=== PATIENT | male | born 1950 | race Caucasian/White ===

== ENCOUNTER → 2024-12-21 | Outpatient (CLI) | payer MEDICARE, BC, SELFPAY ==
--- NOTE | 2024-12-21 16:31 | XR_ITS ---
Examination: PA lateral chest 2 views TECHNIQUE: Upright PA lateral chest 2 views Exam date and time: December 21, 2024 1637 hours Comparison December 16, 2016 INDICATIONS: Bronchitis coughing beginning 2 weeks ago. FINDINGS: Mild accentuation basilar bronchovascular markings Normal heart size No lobar pneumonia Partial visualization cervical orthopedic hardware Left shoulder arthroplasty with satisfactory alignment IMPRESSION: Basilar bronchitis pattern
== END | disposition home or self-care (01) ==
PROVIDERS: PCP Family Medicine; Referring Provider Family Medicine; Visit Provider Family Medicine
DX: R05.9 Cough, unspecified (principal)
CPT/HCPCS: 71046

== ENCOUNTER → 2024-12-30 | Outpatient (CLI) | payer MEDICARE, BC, SELFPAY ==
[2024-12-30 10:40] LABS: Basophils % (Auto) 0 % (0-2.5); Eosinophils # (Auto) 0.2 Thou/mm3 (0.0-0.5); Eosinophils % (Auto) 3 % (0-10); Hematocrit 47.6 % (41.0-53.0); Hemoglobin 16.4 g/dL (13.5-16.0); Immature Granulocytes % (Auto) 1 % (0-0); Immature Granulocytes Auto 0.05 Thou/mm3 (0.00-0.00); Lymphocytes # (Auto) 2.1 Thou/mm3 (1.0-4.8); Lymphocytes % (Auto) 29 % (10-50); Mean Corpuscular HGB Conc 34.5 g/dl (31.0-37.0); Mean Corpuscular Hemoglobin 29.8 pg (25.0-35.0); Mean Corpuscular Volume 87 fL (80-100); Monocytes # (Auto) 0.7 Thou/mm3 (0.0-0.8); Monocytes % (Auto) 9 % (0-12); Neutrophils # (Auto) 4.3 Thou/mm3 (1.8-7.7); Neutrophils % (Auto) 59 % (37-80); Nucleated Red Blood Cell % 0 /100 WBC (0); Platelet Count 294 Thou/mm3 (140-440); RDW Standard Deviation 41.1 fL (35.1-43.9); White Blood Count 7.3 Thou/mm3 (3.8-10.6)
[2024-12-30 10:49] LABS: Glucose Estimated Average 134 mg/dL (80-131); Hemoglobin A1C 6.3 % Hgb (4.8-6.0)
[2024-12-30 10:56] LABS: Alanine Aminotransferase 35 U/L (10-49); Albumin, Serum 4.1 gm/dL (3.4-4.8); Albumin/Globulin Ratio 1.4 (1.2-2.2); Alkaline Phosphatase 60 U/L (46-116); Anion Gap 9 (7-16); Aspartate Amino Transferase 21 U/L (0-34); BUN/Creatinine Ratio 15 Ratio (12-20); Blood Urea Nitrogen 15 mg/dL (9-23); Calcium 9.3 mg/dL (8.3-10.6); Calcium (Corrected) 9.3 mg/dL (8.5-10.1); Carbon Dioxide 28.1 mMol/L (20.0-31.0); Cardiac Risk Estimate 3.6 RATIO (4.0-6.7); Chloride 96 mMol/L (98-107); Cholesterol 118 mg/dL (132-200); Free T4 (Free Thyroxine) 1.69 ng/dL (0.89-1.76); Glucose 124 mg/dL (74-106); HDL Cholesterol 33 mg/dL (40-60); LDL Cholesterol,Calculated 55 mg/dL (0-130); Osmolality,Calculated 268 (275-295); Potassium 4.3 mMol/L (3.4-5.1); Sodium 133 mMol/L (136-145); Thyroid Stimulating Hormone 5.54 uIU/mL (0.55-4.78); Total Protein 7.1 gm/dL (5.7-8.2); Triglycerides 148 mg/dL (30-150); eGFR > 60 See Note
[2024-12-30 10:57] LABS: Sed Rate (ESR) 12 mm/hr (0-20)
[2024-12-30 13:51] LABS: Cocci Serology, IgM Negative (Negative)
[2025-01-01 14:51] LABS: Cocci Serology, IgG Negative (Negative)
== END | disposition home or self-care (01) ==
LOC: COPL 09:54
PROVIDERS: PCP Family Medicine; Referring Provider Family Medicine; Visit Provider Family Medicine
DX: E11.65 Type 2 diabetes mellitus with hyperglycemia (principal); E78.1 Pure hyperglyceridemia; E03.2 Hypothyroidism due to medicaments and other exogenous substances; D50.0 Iron deficiency anemia secondary to blood loss (chronic)
CPT/HCPCS: 36415; 80053; 80061; 83036; 84439; 84443; 85025; 85652; 86331; 86635

== ENCOUNTER → 2025-01-05 | Outpatient (CLI) | payer MEDICARE, BC, SELFPAY ==
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
== END | disposition home or self-care (01) ==
PROVIDERS: PCP Family Medicine; Referring Provider Family Medicine; Visit Provider Family Medicine
DX: S09.90XA Unspecified injury of head, initial encounter (principal); X58.XXXA Exposure to other specified factors, initial encounter
CPT/HCPCS: 70260

== ENCOUNTER → 2025-01-25 | Outpatient (CLI) | payer MEDICARE, BC, SELFPAY ==
[2025-01-25 13:47] LABS: Free T4 (Free Thyroxine) 1.58 ng/dL (0.89-1.76)
[2025-01-25 13:56] LABS: Thyroid Stimulating Hormone 2.83 uIU/mL (0.55-4.78)
== END | disposition home or self-care (01) ==
LOC: COPL 10:48
PROVIDERS: PCP Family Medicine; Referring Provider Internal Medicine Cardiovascular Disease; Visit Provider Family Medicine
DX: E03.2 Hypothyroidism due to medicaments and other exogenous substances (principal)
CPT/HCPCS: 36415; 84439; 84443

== ENCOUNTER → 2025-03-07 | Outpatient (CLI) | payer MEDICARE, BC, SELFPAY ==
--- NOTE | 2025-03-07 09:41 | XR_ITS ---
Examination:Left hip AP, lateral, AP pelvis 3 views Technique: Hip AP lateral, AP pelvis, 3 views Exam date and time:March 07, 2025 0942 hours Comparison 08/11/2024 INDICATIONS: Hip pain 8 months FINDINGS: Advanced left hip osteoarthritis Moderate narrowing right hip joint Bones of the pelvis is intact IMPRESSION: Advanced left hip osteoarthritis
== END | disposition home or self-care (01) ==
PROVIDERS: PCP Family Medicine; Referring Provider Orthopaedic Surgery Adult Reconstructive Orthopaedic Surgery; Visit Provider Orthopaedic Surgery Adult Reconstructive Orthopaedic Surgery
DX: M16.12 Unilateral primary osteoarthritis, left hip (principal)
CPT/HCPCS: 73502

== ENCOUNTER 2025-03-10 13:24 | Outpatient (AMB) | payer MEDICARE, BC, SELFPAY ==
[2025-03-10 13:41] VITALS: BP 105/70; PULSE 80; RESP 19; TEMP 36; O2SAT 93; BMI 26.0
--- NOTE | 2025-03-10 13:41 | ORTHONT_ITS ---
Vital signs 03/10/25 13:41 Height 1.68 m Height Method Stated Weight 73.17 kg Weight Measurement Method Standing Scale BMI 26.0 BP 105/70 Blood Pressure Source Automatic Cuff Blood Pressure Location Left Upper Arm Position Sitting Respiration 19 Pulse 80 Pulse Source Monitor Temp 96.8 F Temp Source Temporal Artery Scan Pulse Oximetry (%) 93 L Oxygen Delivery Method Room Air Med/Allergies Allergies & Medications Allergies Penicillins Allergy (Unknown, Verified 03/10/25 13:42) Rash Medication Reconciliation amiodarone 200 mg tablet 200 mg PO QDAY 04/02/19 [History Confirmed 03/10/25] finasteride 5 mg tablet 5 mg PO QDAY 04/02/19 [History Confirmed 03/10/25] losartan 50 mg tablet 50 mg PO QDAY 04/02/19 [History Confirmed 03/10/25] mupirocin 2 % topical ointment 1 applic topical TID 04/02/19 [History Confirmed 03/10/25] omeprazole 20 mg capsule,delayed release 20 mg PO QDAY 04/02/19 [History Confirmed 03/10/25] tamsulosin 0.4 mg capsule 0.4 mg PO QDAY 04/02/19 [History Confirmed 03/10/25] apixaban 5 mg tablet (Eliquis) 5 mg PO QDAY 06/05/23 [History Confirmed 03/10/25] diclofenac sodium 1 % topical gel 1 g topical TID PRN Itching 06/05/23 [History Confirmed 03/10/25] fluticasone propionate 50 mcg/actuation nasal spray,suspension 1 spray intranasal QDAY 06/05/23 [History Confirmed 03/10/25] loratadine 10 mg tablet 10 mg PO QDAY 06/05/23 [History Confirmed 03/10/25] alendronate 35 mg tablet 35 mg PO QWEEK 06/06/23 [History Confirmed 03/10/25] Exam Exam Patient is in no acute distress and is cooperative with the examination today. Breathing is nonlabored. In no respiratory distress. Patient has no paraspinal tenderness. Spinal deformity cannot be appreciated. The gait of the patient is nonantalgic Bilateral extremities were evaluated and demonstrates sensation intact to light touch. Palpable pedal pulses are present. No significant edema is present. Bilateral knees were examined and the patient has full strength and range of motion.. The right hip was examined. Patient was able to flex to 90 degrees, adduct to 30 degrees, abduct to 40 degrees, internally rotate to 20 degrees, and externally r otate to 20 degrees. Patient has a negative logroll. Stinchfield is negative. The patient is nontender diffusely to touch. The left hip was examined. Patient was able to flex to 90 degrees, adduct to 30 degrees, abduct to 40 degrees, internally rotate to 10 degrees, and externally rotate to 20 degrees. Patient has a Positive logroll. The stinchfield is negative. Assessment and Plan Problem List (1) Arthritis of left hip: Status: Acute Plan: Patient is a pleasant 74-year-old male with a left hip pain and left hip arthritis. We discussed different treatment options including injections, anti- inflammatories, and physical therapy. The pain is affecting his quality life he has severe arthritis of his left hip. We discussed total hip replacement in great detail. He cannot take anti-inflammatories due to his Eliquis. We discussed that he is at high risk for complications mainly because of the blood thinner. This would have to be stopped before surgery. He is also at high risk of DVT given that he had a provoked DVT in the past. He reports that the pain is affecting his quality life and He would like to proceed with a total hip replacement The nature and purpose of the total hip replacement, alternative method(s) of treatment, the material risks involved, and the possibility of complications were fully explained to the patient. The patient does NOT have any of the following contraindications to DUSTIN: - Active infection of the hip joint, OR - Active systemic bacteremia, OR - Active skin infection or open wound at surgical site, OR - Neuropathic arthritis, OR - Severe, rapidly progressive neurological disease, OR - Severe medical condition that makes risks of the surgery outweigh the potential benefit The patient was told the most common risks and complications associated with a total hip replacement include, but are not limited to: blood clots in the leg, fatal pulmonary embolism, dislocation of the prosthesis, intraoperative and postoperative fractures of the femur or acetabulum, infection, failure of the prosthesis or grafting materials, complications from anesthesia, reactions to blood transfusions, postoperative leg length inequality, instability of the hip replacement, nerve damage or injury, vascular injury, delayed wound healing, infection, other injury or even . In addition, there are risks associated with anesthesia given during this operation. Also, the patient was told that after undergoing a total hip replacement there may still be persistent pain or disability. The patient was informed that the success of this operation in part depends upon the mechanical devices which are going to be implanted and that these devices can fail or malfunction, and may need to be repaired or replaced and there are no guarantees as to the longevity of this device or its parts and that it or its parts could fail prematurely. The patient was also notified that during the course of surgery, there may be a need to use bone graft from donors, and that any bone graft used will be carefully screened for communicable diseases, including AIDS, hepatitis, Deandre-Creutzfeldt, or other diseases, but despite the screening procedures, there is a small chance that they could contract one of these diseases. Finally, the patient was asked to follow completely and fully with all advice and recommended treatments, and that recovery and ultimate outcome are affected by their compliance with recommended treatment. We discussed the risks, benefits and treatment alternatives, and the patient is interested in proceeding with surgery. We will try to set this up as expeditiously as possible. Advanced Care Planning Discussion Advance care planning discussed with:: patient Office Procedures GNS Level of Care Nursing/Assessment Patient Status: Initial/New Patient Nursing Assessment/Reassesment: Medication Reconciliation, Update PMH in EMR and Vital Signs Coordination of Care: Complex Care and Chronic Disease 1-5, Education Complex Pt/Fam, Consent,records obtained, informed consent, 1 Ins Authorization, Lab and Imaging orders, Results/Orders obtained and Staff clarify orders New Patient Charge New Patient Point Assignment: 1124 New Patient Point Charge: BINDING STITCHER Level 4 ([id number]) MA Intake Visit Data Collection New Patient or Established: New Patient (never been to [facility]) Reason for Visit:: LEFT HIP OA Seen by Clinical Staff ONLY (RN/MA): No Soap Inspector Required: No PCP or OBGYN visit in last 3 months: Yes Hx Now: No Do You Feel Safe at Home: Yes Authorities Contacted: N/A Questionairres Past Medical History Past Medical History Have you ever been diagnosed with any of the following: Neurological Problems Seizures: No Cardiology Problems Cardiac Arrhythmia: Yes Atrial Fibrillation: Yes Angina: No Congestive Heart Failure: No Hypertension: Yes Respiratory Problems Chronic Obstructive Pulmonary Disease (COPD): No Smoking: No Smoking Exposure: No Stomache/Intestinal Problems Gastroesophageal Reflux Disease: Yes Genital/Urinary Problems Renal Disease: No Benign Prostatic Hyperplasia: Yes Musculoskeletal Problems Arthritis: Yes Carpal Tunnel Syndrome: Yes (left) Endocrine Problems Diabetes Mellitus Type 1: No Diabetes Mellitus Type 2: No Other Problems Falls: No Blood Transfusions: No Anesthesia Reactions: No Chicken Pox: Yes Measles: Yes Mumps: Yes Cancer: Yes Subjective Visit Visit for: new patient and hip (LEFT) Immunization / Flu Flu Vaccine in the Last 12 Months: No Flu Vaccine Exclusion Criteria: No Exclusion Criteria History of Present Illness Chief complaint: Left hip Date of injury / onset of symptoms: 03/2024 Severo is a pleasant 74-year-old male with severe left hip pain. This been ongoing for 1 to 2 years. He is on Eliquis for a prior DVT that occurred quite a while ago when he had shoulder surgery. He also has some heart issues. 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 We would need to get both medical and cardiac clearance prior to surgery. The left hip pain has been bothering him for quite a while. He takes Tylenol. He cannot take anti-inflammatories due to his Eliquis. He reports that the pain is primarily in the groin Personal History Occupation: RETIRED Pain Pain level (0-10): 3 Pain duration: ON AND OFF Pain location: outside (lateral) Pain quality: dull and other (specify) Pain timing: night, increases with activity and stairs Associated signs & symptoms: stiffness Ambulatory data Ambulatory device: none Treatments Improvement with previous injections: No Improvement with PT: No Improvement with NSAIDS: no Review of Systems Review of Systems: All systems negative unless otherwise noted in HPI.
== END 2025-03-10 14:07 | disposition home or self-care (01) ==
PROVIDERS: PCP Family Medicine; Referring Provider Family Medicine; Supervising Provider Orthopaedic Surgery Adult Reconstructive Orthopaedic Surgery; Visit Provider Orthopaedic Surgery Adult Reconstructive Orthopaedic Surgery
DX: M16.12 Unilateral primary osteoarthritis, left hip (principal); M25.552 Pain in left hip; I10 Essential (primary) hypertension; I48.91 Unspecified atrial fibrillation
CPT/HCPCS: 99204; G0463

== ENCOUNTER → 2025-03-18 | Outpatient (CLI) | payer MEDICARE, BC, SELFPAY | END | disposition home or self-care (01) | PROVIDERS: PCP Family Medicine; Referring Provider Internal Medicine Cardiovascular Disease; Visit Provider Orthopaedic Surgery Adult Reconstructive Orthopaedic Surgery | DX: Z01.810 Encounter for preprocedural cardiovascular examination (principal) | CPT/HCPCS: 80053; 85025; 85610; 85730 ==

== ENCOUNTER → 2025-03-21 | Outpatient (CLI) | payer MEDICARE, BC, SELFPAY ==
[2025-03-21 18:01] LABS: Basophils % (Auto) 1 % (0-2.5); Eosinophils # (Auto) 0.3 Thou/mm3 (0.0-0.5); Eosinophils % (Auto) 4 % (0-10); Hematocrit 44.9 % (41.0-53.0); Hemoglobin 15.6 g/dL (13.5-16.0); Immature Granulocytes % (Auto) 0 % (0-0); Immature Granulocytes Auto 0.03 Thou/mm3 (0.00-0.00); Lymphocytes # (Auto) 2.6 Thou/mm3 (1.0-4.8); Lymphocytes % (Auto) 31 % (10-50); Mean Corpuscular HGB Conc 34.7 g/dl (31.0-37.0); Mean Corpuscular Hemoglobin 30.3 pg (25.0-35.0); Mean Corpuscular Volume 87 fL (80-100); Monocytes # (Auto) 0.8 Thou/mm3 (0.0-0.8); Monocytes % (Auto) 10 % (0-12); Neutrophils # (Auto) 4.6 Thou/mm3 (1.8-7.7); Neutrophils % (Auto) 55 % (37-80); Nucleated Red Blood Cell % 0 /100 WBC (0); Platelet Count 272 Thou/mm3 (140-440); RDW Standard Deviation 43.9 fL (35.1-43.9); Red Blood Count 5.15 Miln/mm3 (4.50-5.90); White Blood Count 8.4 Thou/mm3 (3.8-10.6)
[2025-03-21 18:07] LABS: Partial Thromboplastin Time 29.4 Seconds (22.0-36.0); Prothrombin Time 11.1 Seconds (9.0-12.2)
[2025-03-21 18:13] LABS: Alanine Aminotransferase 32 U/L (10-49); Albumin, Serum 3.9 gm/dL (3.4-4.8); Albumin/Globulin Ratio 1.4 (1.2-2.2); Alkaline Phosphatase 63 U/L (46-116); Anion Gap 6 (7-16); Aspartate Amino Transferase 25 U/L (0-34); BUN/Creatinine Ratio 14 Ratio (12-20); Bilirubin,Total 0.4 mg/dL (0.3-1.2); Blood Urea Nitrogen 14 mg/dL (9-23); Calcium 9.1 mg/dL (8.3-10.6); Calcium (Corrected) 9.2 mg/dL (8.5-10.1); Carbon Dioxide 28.4 mMol/L (20.0-31.0); Chloride 104 mMol/L (98-107); Globulin 2.7 gm/dL (2.3-3.5); Glucose 107 mg/dL (74-106); Osmolality,Calculated 276 (275-295); Potassium 4.1 mMol/L (3.4-5.1); Sodium 138 mMol/L (136-145); Total Protein 6.6 gm/dL (5.7-8.2); eGFR > 60 See Note
== END | disposition home or self-care (01) ==
LOC: COPL 16:07
PROVIDERS: PCP Family Medicine; Referring Provider Orthopaedic Surgery Adult Reconstructive Orthopaedic Surgery; Visit Provider Internal Medicine Cardiovascular Disease
DX: Z01.810 Encounter for preprocedural cardiovascular examination (principal); I82.622 Acute embolism and thrombosis of deep veins of left upper extremity; M16.12 Unilateral primary osteoarthritis, left hip
CPT/HCPCS: 36415; 80053; 85025; 85610; 85730

== ENCOUNTER 2025-03-31 13:47 | Outpatient (AMB) | payer MEDICARE, BC, SELFPAY ==
[2025-03-31 14:56] VITALS: BP 105/68; PULSE 78; RESP 18; TEMP 36.6; O2SAT 89; BMI 26.2
--- NOTE | 2025-03-31 14:56 | PD.ORTHCLVIS ---
Vital signs 03/31/25 14:56 Height 1.68 m Height Method Stated Weight 74.134 kg Weight Measurement Method Standing Scale BMI 26.2 BP 105/68 Blood Pressure Source Automatic Cuff Blood Pressure Location Left Upper Arm Position Sitting Respiration 18 Pulse 78 Pulse Source Monitor Temp 97.9 F Temp Source Temporal Artery Scan Pulse Oximetry (%) 89 L Oxygen Delivery Method Room Air Med/Allergies Allergies & Medications Allergies Penicillins Allergy (Unknown, Verified 03/31/25 14:57) Rash Medication Reconciliation amiodarone 200 mg tablet 200 mg PO QDAY 04/02/19 [History Confirmed 03/31/25] finasteride 5 mg tablet 5 mg PO QDAY 04/02/19 [History Confirmed 03/31/25] losartan 50 mg tablet 50 mg PO QDAY 04/02/19 [History Confirmed 03/31/25] mupirocin 2 % topical ointment 1 applic topical TID 04/02/19 [History Confirmed 03/31/25] omeprazole 20 mg capsule,delayed release 20 mg PO QDAY 04/02/19 [History Confirmed 03/31/25] tamsulosin 0.4 mg capsule 0.4 mg PO QDAY 04/02/19 [History Confirmed 03/31/25] apixaban 5 mg tablet (Eliquis) 5 mg PO QDAY 06/05/23 [History Confirmed 03/31/25] diclofenac sodium 1 % topical gel 1 g topical TID PRN Itching 06/05/23 [History Confirmed 03/31/25] fluticasone propionate 50 mcg/actuation nasal spray,suspension 1 spray intranasal QDAY 06/05/23 [History Confirmed 03/31/25] loratadine 10 mg tablet 10 mg PO QDAY 06/05/23 [History Confirmed 03/31/25] alendronate 35 mg tablet 35 mg PO QWEEK 06/06/23 [History Confirmed 03/31/25] Exam Exam Patient is in no acute distress and is cooperative with the examination today. Breathing is nonlabored. In no respiratory distress. Patient has no paraspinal tenderness. Spinal deformity cannot be appreciated. The gait of the patient is nonantalgic Bilateral extremities were evaluated and demonstrates sensation intact to light touch. Palpable pedal pulses are present. No significant edema is present. Bilateral knees were examined and the patient has full strength and range of motion.. The right hip was examined. Patient was able to flex to 90 degrees, adduct to 30 degrees, abduct to 40 degrees, internally rotate to 20 degrees, and externally rotate to 20 degrees. Patient has a negative logroll. Stinchfield is negative. The patient is nontender diffusely to touch. The left hip was examined. Patient was able to flex to 90 degrees, adduct to 30 degrees, abduct to 40 degrees, internally rotate to 10 degrees, and externally rotate to 20 degrees. Patient has a Positive logroll. The stinchfield is negative. Assessment and Plan Problem List (1) Arthritis of left hip: Status: Acute Plan: Patient is a pleasant 74-year-old male with a left hip pain and left hip arthritis. We discussed different treatment options including injections, anti-inflammatories, and physical therapy. The pain is affecting his quality life he has severe arthritis of his left hip. We discussed total hip replacement in great detail. He cannot take anti-inflammatories due to his Eliquis. We discussed that he is at high risk for complications mainly because of the blood thinner. This would have to be stopped before surgery. He is also at high risk of DVT given that he had a provoked DVT in the past. He reports that the pain is affecting his quality life and He would like to proceed with a total hip replacement The nature and purpose of the total hip replacement, alternative method(s) of treatment, the material risks involved, and the possibility of complications were fully explained to the patient. The patient does NOT have any of the following contraindications to DUSTIN: - Active infection of the hip joint, OR - Active systemic bacteremia, OR - Active skin infection or open wound at surgical site, OR - Neuropathic arthritis, OR - Severe, rapidly progressive neurological disease, OR - Severe medical condition that makes risks of the surgery outweigh the potential benefit The patient was told the most common risks and complications associated with a total hip replacement include, but are not limited to: blood clots in the leg, fatal pulmonary embolism, dislocation of the prosthesis, intraoperative and postoperative fractures of the femur or acetabulum, infection, failure of the prosthesis or grafting materials, complications from anesthesia, reactions to blood transfusions, postoperative leg length inequality, instability of the hip replacement, nerve damage or injury, vascular injury, delayed wound healing, infection, other injury or even . In addition, there are risks associated with anesthesia given during this operation. Also, the patient was told that after undergoing a total hip replacement there may still be persistent pain or disability. The patient was informed that the success of this operation in part depends upon the mechanical devices which are going to be implanted and that these devices can fail or malfunction, and may need to be repaired or replaced and there are no guarantees as to the longevity of this device or its parts and that it or its parts could fail prematurely. The patient was also notified that during the course of surgery, there may be a need to use bone graft from donors, and that any bone graft used will be carefully screened for communicable diseases, including AIDS, hepatitis, Deandre-Creutzfeldt, or other diseases, but despite the screening procedures, there is a small chance that they could contract one of these diseases. Finally, the patient was asked to follow completely and fully with all advice and recommended treatments, and that recovery and ultimate outcome are affected by their compliance with recommended treatment. We discussed the risks, benefits and treatment alternatives, and the patient is interested in proceeding with surgery. We will try to set this up as expeditiously as possible. Advanced Care Planning Discussion Advance care planning discussed with:: patient Office Procedures GNS Level of Care Nursing/Assessment Patient Status: Established Patient Nursing Assessment/Reassesment: Medication Reconciliation, Update PMH in EMR and Vital Signs Coordination of Care: Complex Care and Chronic Disease 1-5, Education Complex Pt/Fam, Consent,records obtained, informed consent, Results/Orders obtained and Staff clarify orders Established Patient Charge Established Patient Point Assignment: 95 Established Patient Point Charge: EP Level 3 (80-115) MA Intake Visit Data Collection New Patient or Established: Established Patient (seen at [facility] within 3 years) Reason for Visit:: PRE OP L TKA Seen by Clinical Staff ONLY (RN/MA): No Dental Technology Advisor Required: No PCP or OBGYN visit in last 3 months: Yes Hx Now: No Do You Feel Safe at Home: Yes Authorities Contacted: N/A Questionairres Past Medical History Past Medical History Have you ever been diagnosed with any of the following: Neurological Problems Seizures: No Cardiology Problems Cardiac Arrhythmia: Yes Atrial Fibrillation: Yes Angina: No Congestive Heart Failure: No Hypertension: Yes Respiratory Problems Chronic Obstructive Pulmonary Disease (COPD): No Smoking: No Smoking Exposure: No Stomache/Intestinal Problems Gastroesophageal Reflux Disease: Yes Genital/Urinary Problems Renal Disease: No Benign Prostatic Hyperplasia: Yes Musculoskeletal Problems Arthritis: Yes Carpal Tunnel Syndrome: Yes (left) Endocrine Problems Diabetes Mellitus Type 1: No Diabetes Mellitus Type 2: No Other Problems Falls: No Blood Transfusions: No Anesthesia Reactions: No Chicken Pox: Yes Measles: Yes Mumps: Yes Cancer: Yes Subjective Visit Visit for: follow up visit and knee Immunization / Flu Flu Vaccine in the Last 12 Months: No Flu Vaccine Exclusion Criteria: No Exclusion Criteria History of Present Illness Chief complaint: Left hip Date of injury / onset of symptoms: 03/2024 Severo is a pleasant 74-year-old male with severe left hip pain. This been ongoing for 1 to 2 years. He is on Eliquis for a prior DVT that occurred quite a while ago when he had shoulder surgery. He also has some heart issues. 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 We would need to get both medical and cardiac clearance prior to surgery. The left hip pain has been bothering him for quite a while. He takes Tylenol. He cannot take anti-inflammatories due to his Eliquis. He reports that the pain is primarily in the groin Personal History Occupation: RETIRED Pain Pain level (0-10): 6 Pain duration: COMES AND GOES Pain location: inside (medial) and anterior Pain quality: sharp, dull and aching Pain timing: increases with activity Associated signs & symptoms: stiffness Ambulatory data Ambulatory device: none Treatments Improvement with previous injections: No Improvement with PT: No Improvement with NSAIDS: no Review of Systems Review of Systems: All systems negative unless otherwise noted in HPI.
== END 2025-03-31 15:09 | disposition home or self-care (01) ==
PROVIDERS: PCP Family Medicine; Referring Provider Family Medicine; Supervising Provider Orthopaedic Surgery Adult Reconstructive Orthopaedic Surgery; Visit Provider Orthopaedic Surgery Adult Reconstructive Orthopaedic Surgery
DX: M16.12 Unilateral primary osteoarthritis, left hip (principal); M25.552 Pain in left hip; I10 Essential (primary) hypertension; I48.91 Unspecified atrial fibrillation
CPT/HCPCS: 99213; G0463

== ENCOUNTER → 2025-04-01 | Outpatient (CLI) | payer MEDICARE, BC, SELFPAY ==
--- NOTE | 2025-04-01 | XR_ITS ---
Examination: Bilateral knees 2 views Right lateral knee left lateral knee 2 views Bilateral axial knees single view TECHNIQUE: Bilateral AP knees standing single view, bilateral PA knees standing single view flexion Standing right lateral knee left lateral knee 2 views Bilateral axial knees single view total 5 views Exam date and time: April 01, 2025 12:24 PM INDICATIONS: Bilateral knee pain years FINDINGS: Mild narrowing medial lateral joint spaces bilaterally Severe narrowing bilateral patellofemoral joints No fractures IMPRESSION: Severe narrowing bilateral patellofemoral joints
== END | disposition home or self-care (01) ==
LOC: CDIM 12:11
PROVIDERS: PCP Family Medicine
DX: M25.862 Other specified joint disorders, left knee (principal); M25.861 Other specified joint disorders, right knee
CPT/HCPCS: 73564

== ENCOUNTER → 2025-04-13 | Outpatient (CLI) | payer MEDICARE, BC, SELFPAY ==
--- NOTE | 2025-04-13 12:00 | XR_ITS ---
Examination: CT bilateral hips, without contrast. 2-D sagittal reconstructions. 2-D coronal reconstructions. 3-D reconstructions. Date and time of exam:April 13, 2025 1203 hours INDICATIONS: Diagnosis left hip pain in lateral left hip osteoarthritis one year CTDI: vol (mGy):8.82 DLP: (mGycm):570 Technique: Multiple 1.25 mm axial sections of the bilateral hips have been obtained. 2-D sagittal and coronal reconstructions have been obtained. 3-D reconstructions have been obtained. Low dose protocols were performed. One or more of the following dose reduction techniques were used; automated exposure control, adjustment of the mA and/or KV according to patient size, use of iterative reconstruction technique. Findings: Moderate osteopenia Advanced left hip osteoarthritis, [id number] joint space narrowing Moderate narrowing right hip joint No fractures No avascular necrosis IMPRESSION: Advanced left hip osteoarthritis
== END | disposition home or self-care (01) ==
PROVIDERS: Referring Provider Orthopaedic Surgery Adult Reconstructive Orthopaedic Surgery; Visit Provider Orthopaedic Surgery Adult Reconstructive Orthopaedic Surgery
DX: M16.12 Unilateral primary osteoarthritis, left hip (principal)
CPT/HCPCS: 72192; 73700

== ENCOUNTER 2025-04-27 05:50 | Day surgery (SDC) | payer MEDICARE, BC, SELFPAY ==
[2025-04-22 11:48] VITALS: BMI 27.3
[2025-04-22 13:24] LABS: Basophils % (Auto) 0 % (0-2.5); Eosinophils # (Auto) 0.2 Thou/mm3 (0.0-0.5); Eosinophils % (Auto) 2 % (0-10); Hematocrit 44.5 % (41.0-53.0); Hemoglobin 15.9 g/dL (13.5-16.0); Immature Granulocytes % (Auto) 1 % (0-0); Immature Granulocytes Auto 0.05 Thou/mm3 (0.00-0.00); Lymphocytes # (Auto) 2.6 Thou/mm3 (1.0-4.8); Lymphocytes % (Auto) 27 % (10-50); Mean Corpuscular HGB Conc 35.7 g/dl (31.0-37.0); Mean Corpuscular Hemoglobin 30.3 pg (25.0-35.0); Mean Corpuscular Volume 85 fL (80-100); Monocytes # (Auto) 0.9 Thou/mm3 (0.0-0.8); Monocytes % (Auto) 10 % (0-12); Neutrophils # (Auto) 5.7 Thou/mm3 (1.8-7.7); Neutrophils % (Auto) 60 % (37-80); Nucleated Red Blood Cell % 0 /100 WBC (0); Platelet Count 277 Thou/mm3 (140-440); RDW Standard Deviation 42.7 fL (35.1-43.9); Red Blood Count 5.24 Miln/mm3 (4.50-5.90); White Blood Count 9.6 Thou/mm3 (3.8-10.6)
[2025-04-22 13:35] LABS: Alanine Aminotransferase 34 U/L (10-49); Albumin, Serum 4.2 gm/dL (3.4-4.8); Albumin/Globulin Ratio 1.6 (1.2-2.2); Alkaline Phosphatase 75 U/L (46-116); Anion Gap 8 (7-16); Aspartate Amino Transferase 25 U/L (0-34); BUN/Creatinine Ratio 15 Ratio (12-20); Bilirubin,Total 0.4 mg/dL (0.3-1.2); Blood Urea Nitrogen 16 mg/dL (9-23); Calcium 8.7 mg/dL (8.3-10.6); Calcium (Corrected) 8.7 mg/dL (8.5-10.1); Carbon Dioxide 25.9 mMol/L (20.0-31.0); Chloride 103 mMol/L (98-107); Creatinine (Component) 1.1 mg/dL (0.6-1.3); Estimated Creatinine Clearance 56.4 mL/min (>60); Globulin 2.6 gm/dL (2.3-3.5); Glucose 135 mg/dL (74-106); Osmolality,Calculated 277 (275-295); Potassium 4.4 mMol/L (3.4-5.1); Sodium 137 mMol/L (136-145); Total Protein 6.8 gm/dL (5.7-8.2); eGFR > 60 See Note
[2025-04-22 13:37] LABS: Partial Thromboplastin Time 28.9 Seconds (22.0-36.0); Prothrombin Time 10.8 Seconds (9.0-12.2)
--- NOTE | 2025-04-22 14:44 | SUR.PREOP ---
Cardiac history and records reviewed with Dr Coppola.
[2025-04-27] VITALS (20 sets, daily range): BP systolic 75–148; BP diastolic 54–90; PULSE 63–84; RESP 12–20; TEMP 36.1–36.7; O2SAT 95–99; BMI 26.9; BMI 13.0
--- NOTE | 2025-04-27 07:20 | CHAP ---
Visited briefly with patient's and prayed with both concerning upcoming procedure.
--- NOTE | 2025-04-27 07:30 | XR_ITS ---
Examination: Left hip 2 views TECHNIQUE: AP portable left hip 2 views, fluoroscopy Date and time: April 27, 2025 0927 hours INDICATIONS: Status post left hip arthroplasty FINDINGS: Total left hip arthroplasty. Satisfactory alignment No fracture IMPRESSION: Total left hip arthroplasty with satisfactory alignment
[2025-04-27] MEDS: ACETAMINOPHEN 325 MG TABLET 650 MG PO (07:33)
[2025-04-27] MEDS: PREGABALIN 75 MG CAPSULE PO (07:34)
[2025-04-27] MEDS: MELOXICAM 7.5 MG TABLET PO (07:34)
[2025-04-27] MEDS: RINGERS LACTATED 1000 ML 1,000 ML 20 ML IV (07:35)
--- NOTE | 2025-04-27 10:33 | ESOP_ITS ---
Date of Procedure 04/27/25 Pre Op Diagnosis left hip osteoarthritis Post Op Diagnosis left hip osteoarthritis Procedure left total hip replacement Findings full thickness cartilage loss and osteophytes Procedure Description Indications: The patient is a 74 y.o. year-old male with a long standing history of left hip pain. After considering the patient's condition and the impact of their hip on the patient's quality of life and activities of daily living, total hip replacement was offered as a reasonable option. Prior to the surgery I discussed the nature of the total hip replacement surgery including alternatives to surgery and the purpose of, and indications for proceeding with surgery. I discussed that this is an elective operation and that the patient should carefully weigh their options before proceeding with surgery. I discussed that this surgery is a shared decision between the patient and the surgeon. Risks and benefits and alternatives of the procedure have been explained to the patient and their family. Anesthesia complications and risks include but are not limited to stroke, heart attack, and . The surgical risks include but are not limited to infection, instability/dislocation, bleeding, nerve and blood vessel injury, deep vein thrombosis, pulmonary embolus, stiffness, pain, scar, need for reoperation, leg length discrepancy, thigh numbness, weakness, and mechanical failure of the implant including loosening, metal complications, metal allergy, wear or breakage. I discussed the expected recovery from surgery and the importance of compliance with all our pre and post-operative recommendations in order to maximize the recovery. The patient understands the risks of loss of life, loss of limb and, loss of function and wishes to proceed. A signed and witnessed consent was obtained and placed in the chart. Procedure in Detail: The patient was identified in the preoperative area. A signed and witness consent was confirmed in the chart. The surgery team confirmed with the patient the operative plan and surgical site. The surgical site was confirmed by the patient and marked by the surgical team. The patient was given the opportunity to ask any further questions and all questions were answered. The patient was brought to the operating room where anesthesia was induced by the anesthesia team without incident. The patient was placed in the supine position on a HANA table with the feet well padded in the boots. All extremities were padded to ensure adequate protection. A timeout was performed prior to the procedure which verified the correct patient, positioning, operation to be performed, operative site, antibiotics, allergies, imaging, and any other concerns. All parties were in agreement. The operative site was cleaned and draped in the usual sterile fashion. A final timeout was performed with all parties in agreement. We first started by making a small incision superior to the ASIS ensuring to be on the table of the pelvis. We ensured that we were 2 fingerbreadths above the ASIS and hip. We placed 3 pins through a small incision and ensured that we were in the table. The pins were driven approximately 3 to 4 cm. The arrays were then placed on the contralateral side to face the camera. A anterior approach to the hip was utilized for the operative side. A 11cm skin incision was made just distal and lateral to the ASIS. This was taken down through skin and subcutaneous tissue using a 10 blade. Bleeding was controlled using electrocautery. The fascia was identified and split in line with the its fibers. The plane medial to the TFL was developed. Next the lateral femoral circumflex vessel was cauterized. The capsule over the femoral neck was exposed and a T shaped capsulotomy performed. The two leaflets were tagged. A femoral neck osteotomy was then performed and the head removed using the marker tool to aid in determining the appropriate neck length. The acetabular bone was then mapped.Acetabular retractors were placed and the cupped was reamed using the robot for alignment. We reamed line to line and good bleeding bone was obtained. We then placed a press fit triathlon cup getting proper version and inclination off of c-arm imaging. There was good press fit. The anterior rim of the cup well covered. One placed and confirmed below the rim of the inner cup followed by the liner which was confirmed fully seated circumferentially. Half of the joint injection was placed inferior and anterior to the acetabulum. Peripheral osteophytes were removed. Next the femur was exposed using the table and femoral elevator for assistance. For this case a capsular release was performed leaving the piriformis and rest of short external rotators intact. The canal was broached up until we obtained excellent axial and rotational stability and the hip was reduced. Fluoro was used to merchandise presentation associate limb length, offset, and stem size as well as the calibrations from the robot. Stability was assessed by externally rotating the foot to 90 deg and then extending the hip 30 degrees. There was no subluxation of the femoral head in that position. The hip was dislocated. The stem position and depth was adjusted as needed per the fluoro shot. The neck was planed to the level of the broach using the calcar planar and then the stem removed. The canal was irrigated and the calcar inspected. There was no evidence of fracture and the bone bed was in good condition. The real stem was inserted and then impacted to the prior level of t salvador steel with good solid fit. The calcar was again inspected and in good condition. The real head was impacted onto a clean taper and the hip reduced again. C-arm confirmed reduction and no evidence of complication. The wound was irrigated with dilute betadine followed by saline lavage. Hemostasis was obtained and noted through all layers. The remained of the joint cocktail was injected avoiding posterior by the nerve. We ensured that all the pins were removed from the pelvis including any checkpoints. The capsule was repaired with 0-vlock. The fascia closed with #2 Quill. The subcutaneous tissues closed with 2-0 vlock followed by 3-0 monocryl, dermabond, and prineo The drapes were then taken down and the patient moved to the [facility]. Leg lengths were confirmed to be appropriate and the patient's lower extremities were warm and well perfused with brisk capillary refill and palpable pulses. The patient was then awoken, transferred to the [facility] and taken to the PACU in stable condition. They tolerated the procedure well. The patient's family/caregiviers were made aware of their condition. Final sponge and needle counts were correct x2. Implants: Mariam Insignia 52 cup, 1 screw, 40-2.5 ceramic head, insignia size 3 high offset Anesthesia spinal Implants mariam Pathology / specimen None Pathology comment: none Estimated Blood Loss 150 Condition Stable Disposition same day Surgeon John Heaton MD Surgical Staff Operation Date: 04/27/25 07:30 Case Staff Anesthesiologist: Gianni Coppola RNstores laborer: Loreto Young
--- NOTE | 2025-04-27 10:34 | XR_ITS ---
Examination:Left hip AP, lateral, AP pelvis 3 views Technique: Hip AP lateral, AP pelvis, 3 views Exam date and time:April 27, 2025 1101 hours Comparison March 07, 2025 INDICATIONS: Status post total left hip arthroplasty FINDINGS: Total left hip arthroplasty. Satisfactory alignment Right hip bones of the pelvis intact IMPRESSION: Total left hip arthroplasty with satisfactory alignment.
--- NOTE | 2025-04-27 10:35 | SUR.PHASEI ---
1035 patient arrived to recovery resting comfortably in [facility], drowsy and able to arouse with verbal prompting, on oxygen 6L via oxy mask, breathing unlabored, blood pressure low; anesthesia aware, patient currently has IV fluids running, the remainder of patients vital signs are within normal limits, breathing unlabored, denies pain, dressing intact to left hip; prineo, telfa, abd, medipore tape, and to right hip; prineo, gauze, medipore tape, no bleeding noted, post spinal anesthesia assessment via ice; dermatome sensation at [id number] pubis, will monitor, patient has good circulation to left lower extremity; skin color is normal for patient and warm to touch, bilateral dorsalis pedis pulses present when palpated, report received from Michael DELCID and Dr. Coppola
--- NOTE | 2025-04-27 11:56 | SUR.PHASEII ---
1672 Telephone order read-back received from Dr. Coppola; Tamsulosin 0.4mg oral tab, will place order in EMR and administer per order
[2025-04-27] MEDS: RINGERS LACTATED 1000 ML 1,000 ML 500 ML IV (12:15)
--- NOTE | 2025-04-27 12:15 | SUR.PHASEII ---
Addendum entered by Montserrat Villegas RN 04/27/25 12:24: per anesthesia order 500ml IV fluid x2 for continued low blood pressure Original Note: 1210 Dr. Coppola made aware of patient low blood pressure 81/55; Telephone order read-back received from fluid bolus via IV, LR [address]ml will place order in EMR and administer per order 1215 Dr. Coppola at bedside assessing patient
--- NOTE | 2025-04-27 12:40 | SUR.PHASEII ---
1235 Dr. Coppola at bedside patients blood pressure continues to be low 80/56, patient medicated by anesthesia provider for low blood pressure, will monitor 1240 patient blood pressure 115/71, medication given by anesthesia provider was effective, will monitor
--- NOTE | 2025-04-27 13:00 | SUR.PHASEII ---
report from nurse macdonald. pt awake and alert. vss. breathing even and unlabored on room air. dr bell at bedside. dressing to left hip cdi.
--- NOTE | 2025-04-27 13:18 | SUR.PHASEII ---
pt denies pain and nausea. vss.
[2025-04-27] MEDS: TAMSULOSIN HCL 0.4 MG CAPSULE PO (13:19)
--- NOTE | 2025-04-27 13:30 | SUR.PHASEII ---
report to nurse anibal. vss. denies pain and nausea. breathing unlabored and even. dressing cdi.
--- NOTE | 2025-04-27 13:40 | SUR.PHASEI ---
6630 post spinal anesthesia complete, patient has dermatome sensation at S2 perineum
--- NOTE | 2025-04-27 14:35 | SUR.PHASEII ---
1435 Patient cleared by physical therapist Mile, to proceed with discharge
--- NOTE | 2025-05-03 13:00 | PD.ANESPROG ---
Documentation for date of: 05/03/25 POST ANESTHESIA NOTE: Patient had spinal anesthesia for L DUSTIN on 04/27/25. I just called and spoke with him on the phone and he denied any problems from anesthesia. Gianni Coppola MD Anesthesia Progress Note Progress Note Most recent Vital Signs: Last Vital Signs Temp 98.0 F 04/27/25 14:25 Pulse 80 04/27/25 14:45 Resp 14 04/27/25 14:45 BP 116/75 04/27/25 14:45 Pulse Ox 97 04/27/25 14:45 O2 Flow Rate 6 04/27/25 11:05
== END 2025-04-27 15:03 | disposition home or self-care (01) ==
PROVIDERS: Anesthesiology; PCP Family Medicine; Referring Provider Orthopaedic Surgery Adult Reconstructive Orthopaedic Surgery; Visit Provider Orthopaedic Surgery Adult Reconstructive Orthopaedic Surgery
PROC: (CPT 27130; principal; 2025-04-27 07:30)
DX: M16.12 Unilateral primary osteoarthritis, left hip (principal); M25.752 Osteophyte, left hip
CPT/HCPCS: 27130; 20985; 36415; 73502; 76000; 80053; 85025; 85610; 85730; 97162; A4217; A4649; C1713; C1776; J0690; J1100; J1200; J2250; J2371; J2704; J3010; J3490; J7030; J7120; J7999; A9270

== ENCOUNTER → 2025-05-04 | Outpatient (CLI) | payer MEDICARE, BC, SELFPAY ==
[2025-05-04 16:18] LABS: D-Dimer 1470 ng/mL (<600)
== END | disposition home or self-care (01) ==
LOC: COPL 14:37
PROVIDERS: PCP Family Medicine; Referring Provider Family Medicine; Visit Provider Family Medicine
DX: I82.409 Acute embolism and thrombosis of unspecified deep veins of unspecified lower extremity (principal)
CPT/HCPCS: 36415; 85379

== ENCOUNTER → 2025-05-05 | Outpatient (CLI) | payer MEDICARE, BC, SELFPAY ==
--- NOTE | 2025-05-05 15:03 | XR_ITS ---
Examination: Duplex scan of the lower extremity, unilateral left complete Date and time of exam: May 05, 2025 1528 hours INDICATIONS: Left hip surgery one week ago followed by left leg swelling and pain Technique: Duplex scan of the extremity veins using B-mode/grayscale imaging and Doppler spectral analysis and color flow Attention is directed to internal echogenicity, compression and augmentation involving these veins, color flow assessment, spectral analysis Findings: Major deep venous structures in the extremity demonstrate normal course and caliber. There is no evidence of deep vein thrombosis. Normal color flow and spectral analysis Impression: Negative for DVT..
== END | disposition home or self-care (01) ==
PROVIDERS: PCP Family Medicine; Referring Provider Family Medicine; Visit Provider Family Medicine
DX: R60.0 Localized edema (principal)
CPT/HCPCS: 93971

== ENCOUNTER 2025-05-12 12:59 | Outpatient (AMB) | payer MEDICARE, BC, SELFPAY ==
[2025-05-12 13:13] VITALS: BP 105/70; PULSE 89; RESP 18; TEMP 36.5; O2SAT 95; BMI 26.6
--- NOTE | 2025-05-12 13:13 | ORTHONT_ITS ---
Vital signs 05/12/25 13:13 Height 1.65 m Height Method Stated Weight 72.66 kg Weight Measurement Method Standing Scale BMI 26.6 BP 105/70 Blood Pressure Source Automatic Cuff Blood Pressure Location Left Upper Arm Position Sitting Respiration 18 Pulse 89 Pulse Source Monitor Temp 97.7 F Temp Source Temporal Artery Scan Pulse Oximetry (%) 95 Oxygen Delivery Method Room Air Med/Allergies Allergies & Medications Allergies Penicillins Allergy (Unknown, Verified 05/12/25 13:15) Rash Medication Reconciliation amiodarone 200 mg tablet 200 mg PO QDAY 04/02/19 [History Confirmed 05/12/25] finasteride 5 mg tablet 5 mg PO QDAY 04/02/19 [History Confirmed 05/12/25] losartan 50 mg tablet 50 mg PO QDAY 04/02/19 [History Confirmed 05/12/25] mupirocin 2 % topical ointment 1 applic topical TID 04/02/19 [History Confirmed 05/12/25] omeprazole 20 mg capsule,delayed release 20 mg PO QDAY 04/02/19 [History Confirmed 05/12/25] tamsulosin 0.4 mg capsule 0.4 mg PO BID 04/02/19 [History Confirmed 05/12/25] apixaban 5 mg tablet (Eliquis) 5 mg PO QDAY 06/05/23 [History Confirmed 05/12/25] Held on 04/27/25. Instructions: Resume on 05/11/25. resume in 14 days. Take 2.5mg eliquis for first 14 days alendronate 35 mg tablet 35 mg PO QWEEK 06/06/23 [History Confirmed 05/12/25] fluticasone furoate 100 mcg/actuation blister powder for inhalation (Arnuity Ellipta) 1 inh inhalation DAILY 04/22/25 [History Confirmed 05/12/25] multivitamin (Daily Multi-Vitamin tablet) 1 tab PO QAM 04/22/25 [History Confirmed 05/12/25] promethazine-DM 6.25 mg-15 mg/5 mL oral syrup 5 ml PO Q6H PRN cough 04/22/25 [History Confirmed 05/12/25] acetaminophen 500 mg tablet (Acetaminophen Extra Strength) 1,000 mg (2 x 500 mg) PO Q6H PRN pain #90 tabs 04/27/25 [Rx Confirmed 05/12/25] apixaban 2.5 mg tablet (Eliquis) 2.5 mg PO BID #28 tabs 04/27/25 [Rx Confirmed 05/12/25] doxycycline hyclate 100 mg tablet 100 mg PO BID #14 tabs 04/27/25 [Rx Confirmed 05/12/25] gabapentin 300 mg capsule 300 mg PO .qhs #30 caps 04/27/25 [Rx Confirmed 05/12/25] sennosides 8.6 mg-docusate sodium 50 mg tablet (Senna-S) 1 tab-cap PO QDAY #30 tabs 04/27/25 [Rx Confirmed 05/12/25] Exam Exam Patient is in no acute distress and is cooperative with the examination today. Breathing is nonlabored. In no respiratory distress. Patient has no paraspinal tenderness. Spinal deformity cannot be appreciated. The gait of the patient is nonantalgic Bilateral extremities were evaluated and demonstrates sensation intact to light touch. Palpable pedal pulses are present. No significant edema is present. Bilateral knees were examined and the patient has full strength and range of motion.. The right hip was examined. Patient was able to flex to 90 degrees, adduct to 30 degrees, abduct to 40 degrees, internally rotate to 20 degrees, and externally rotate to 20 degrees. Patient has a negative logroll. Stinchfield is negative. The patient is nontender diffusely to touch. The left hip was examined. Patient was able to flex to 90 degrees, adduct to 30 degrees, abduct to 40 degrees, internally rotate to 10 degrees, and externally rotate to 20 degrees. Patient has a Positive logroll. The stinchfield is negative. Assessment and Plan Problem List (1) Arthritis of left hip: Status: Acute Plan: Patient is a pleasant 74-year-old male with a left hip pain and left hip arthritis. He is doing well status post left total hip replacement. Will see him in approximately 4 to 5 weeks Will see the patient back in approximately 4 to 5 weeks for routine follow-up and x-rays Advanced Care Planning Discussion Advance care planning discussed with:: patient and spouse Office Procedures GNS Level of Care Nursing/Assessment Patient Status: Established Patient Nursing Assessment/Reassesment: Medication Reconciliation, Update PMH in EMR and Vital Signs Coordination of Care: Complex Care and Chronic Disease 1-5, Education Complex Pt/Fam, Consent,records obtained, informed consent, Results/Orders obtained and Staff clarify orders Established Patient Charge Established Patient Point Assignment: 95 Established Patient Point Charge: EP Level 3 (80-115) MA Intake Visit Data Collection New Patient or Established: Established Patient (seen at [facility] within 3 years) Reason for Visit:: 2 WEEK POST OP L DUSTIN Seen by Clinical Staff ONLY (RN/MA): No PCP or OBGYN visit in last 3 months: Yes Hx Now: No Do You Feel Safe at Home: Yes Authorities Contacted: N/A Questionairres Past Medical History Past Medical History Have you ever been diagnosed with any of the following: Neurological Problems Seizures: No Cardiology Problems Cardiac Arrhythmia: Yes Atrial Fibrillation: Yes Angina: No Congestive Heart Failure: No Hypertension: Yes Respiratory Problems Chronic Obstructive Pulmonary Disease (COPD): No Smoking: No Smoking Exposure: No Stomache/Intestinal Problems Gastroesophageal Reflux Disease: Yes Genital/Urinary Problems Renal Disease: No Benign Prostatic Hyperplasia: Yes Musculoskeletal Problems Arthritis: Yes Carpal Tunnel Syndrome: Yes (left) Endocrine Problems Diabetes Mellitus Type 1: No Diabetes Mellitus Type 2: No Other Problems Hospitalization: Yes Shingles: No Falls: No Blood Transfusions: No Anesthesia Reactions: No Chicken Pox: Yes Measles: Yes Mumps: Yes Cancer: Yes Subjective Visit Visit for: follow up visit, post op #1 and hip Immunization / Flu Flu Vaccine in the Last 12 Months: No Flu Vaccine Exclusion Criteria: No Exclusion Criteria History of Present Illness Chief complaint: Left hip Date of injury / onset of symptoms: 03/2024 Severo is a pleasant 74-year-old male with severe left hip pain. He is doing well s/p L UDSTIN. Personal History Occupation: RETIRED Pain Pain level (0-10): 1 Pain duration: ON AND OFF Pain location: anterior Pain quality: aching Pain timing: increases with activity Associated signs & symptoms: stiffness Ambulatory data Ambulatory device: walker Treatments Improvement with previous injections: No Improvement with PT: No Improvement with NSAIDS: no Review of Systems Review of Systems: All systems negative unless otherwise noted in HPI.
== END 2025-05-12 13:41 | disposition home or self-care (01) ==
LOC: HODSRG 12:59
PROVIDERS: Supervising Provider Orthopaedic Surgery Adult Reconstructive Orthopaedic Surgery; Visit Provider Orthopaedic Surgery Adult Reconstructive Orthopaedic Surgery
DX: M16.12 Unilateral primary osteoarthritis, left hip (principal); M25.552 Pain in left hip; Z96.642 Presence of left artificial hip joint; I10 Essential (primary) hypertension; I48.91 Unspecified atrial fibrillation; K21.9 Gastro-esophageal reflux disease without esophagitis
CPT/HCPCS: 99213; G0463

== ENCOUNTER 2025-06-14 13:51 | Outpatient (AMB) | payer MEDICARE, BC, SELFPAY ==
--- NOTE | 2025-06-14 14:04 | PD.ORTHCLVIS ---
Vital signs 06/14/25 14:19 Height 1.65 m Height Method Stated Weight 71.668 kg Weight Measurement Method Standing Scale BMI 26.3 BP 119/78 Blood Pressure Source Automatic Cuff Blood Pressure Location Left Upper Arm Position Sitting Respiration 18 Pulse 77 Pulse Source Monitor Temp 97.8 F Temp Source Temporal Artery Scan Pulse Oximetry (%) 95 Oxygen Delivery Method Room Air Med/Allergies Allergies & Medications Allergies Penicillins Allergy (Unknown, Verified 06/14/25 14:20) Rash Medication Reconciliation amiodarone 200 mg tablet 200 mg PO QDAY 04/02/19 [History Confirmed 06/14/25] finasteride 5 mg tablet 5 mg PO QDAY 04/02/19 [History Confirmed 06/14/25] losartan 50 mg tablet 50 mg PO QDAY 04/02/19 [History Confirmed 06/14/25] mupirocin 2 % topical ointment 1 applic topical TID 04/02/19 [History Confirmed 06/14/25] omeprazole 20 mg capsule,delayed release 20 mg PO QDAY 04/02/19 [History Confirmed 06/14/25] tamsulosin 0.4 mg capsule 0.4 mg PO BID 04/02/19 [History Confirmed 06/14/25] apixaban 5 mg tablet (Eliquis) 5 mg PO QDAY 06/05/23 [History Confirmed 06/14/25] Held on 04/27/25. Instructions: Resume on 05/11/25. resume in 14 days. Take 2.5mg eliquis for first 14 days alendronate 35 mg tablet 35 mg PO QWEEK 06/06/23 [History Confirmed 06/14/25] fluticasone furoate 100 mcg/actuation blister powder for inhalation (Arnuity Ellipta) 1 inh inhalation DAILY 04/22/25 [History Confirmed 06/14/25] multivitamin (Daily Multi-Vitamin tablet) 1 tab PO QAM 04/22/25 [History Confirmed 06/14/25] promethazine-DM 6.25 mg-15 mg/5 mL oral syrup 5 ml PO Q6H PRN cough 04/22/25 [History Confirmed 06/14/25] acetaminophen 500 mg tablet (Acetaminophen Extra Strength) 1,000 mg (2 x 500 mg) PO Q6H PRN pain #90 tabs 04/27/25 [Rx Confirmed 06/14/25] apixaban 2.5 mg tablet (Eliquis) 2.5 mg PO BID #28 tabs 04/27/25 [Rx Confirmed 06/14/25] doxycycline hyclate 100 mg tablet 100 mg PO BID #14 tabs 04/27/25 [Rx Confirmed 06/14/25] gabapentin 300 mg capsule 300 mg PO .qhs #30 caps 04/27/25 [Rx Confirmed 06/14/25] sennosides 8.6 mg-docusate sodium 50 mg tablet (Senna-S) 1 tab-cap PO QDAY #30 tabs 04/27/25 [Rx Confirmed 06/14/25] Exam Exam Patient is in no acute distress and is cooperative with the examination today. Breathing is nonlabored. In no respiratory distress. Patient has no paraspinal tenderness. Spinal deformity cannot be appreciated. The gait of the patient is nonantalgic Bilateral extremities were evaluated and demonstrates sensation intact to light touch. Palpable pedal pulses are present. No significant edema is present. Bilateral knees were examined and the patient has full strength and range of motion.. The right hip was examined. Patient was able to flex to 90 degrees, adduct to 30 degrees, abduct to 40 degrees, internally rotate to 20 degrees, and externally rotate to 20 degrees. Patient has a negative logroll. Stinchfield is negative. The patient is nontender diffusely to touch. The left hip was examined. Left hip incision c/d/i. Assessment and Plan Problem List (1) Arthritis of left hip: Status: Acute Plan: Patient is a pleasant 74-year-old male with a left hip pain and left hip arthritis. He is doing well status post left total hip replacement. Will see the patient back in approximately 8 weeks for routine follow-up and x-rays Advanced Care Planning Discussion Advance care planning discussed with:: patient and spouse Office Procedures GNS Level of Care Nursing/Assessment Patient Status: Established Patient Nursing Assessment/Reassesment: Medication Reconciliation, Update PMH in EMR and Vital Signs Coordination of Care: Complex Care and Chronic Disease 1-5, Education Complex Pt/Fam, Consent,records obtained, informed consent, Results/Orders obtained and Staff clarify orders Established Patient Charge Established Patient Point Assignment: 95 Established Patient Point Charge: EP Level 3 (80-115) NC Intake Visit Data Collection Reason for Visit:: 6 WEEK LEFT DUSTIN F/U [employer] Required: No PCP or OBGYN visit in last 3 months: Yes Hx Now: No Do You Feel Safe at Home: Yes Authorities Contacted: N/A Questionairres Past Medical History Past Medical History Have you ever been diagnosed with any of the following: Neurological Problems Cerebrovascular Accident (CVA): No Transient Ischemic Attacks (TIA): No Dementia: No Alzheimer's Disease: No Parkinson's Disease: No Brain Tumor: No Meningitis: No Seizures: No Epilepsy: No Multiple Sclerosis: No Cerebral Palsy: No Amyotrophic Lateral Sclerosis (ALS/Mesha Gehrig's): No Guillain-[place] Syndrome: No Spina Bifida: No Paralysis: No Peripheral Neuropathy: No Prakash's Palsy: No Subdural Hematoma: No Migraine: No Head Trauma: No Spinal Cord Injury: No Traumatic Brain Injury: No Cardiology Problems Myocardial Infarction: No Cardiac Arrhythmia: Yes Atrial Fibrillation: Yes Angina: No Heart Murmur: No Coronary Artery Disease: No Atherosclerotic Heart Disease: No Peripheral Vascular Disease: No Hypercholesterolemia: No Aneurysm: No Congestive Heart Failure: No Congenital Heart Disease: No Valvular Heart Disease: No Rheumatic Fever: No Cardiomyopathy: No Edema: No Pericarditis: No Cellulitis: No Deep Vein Thrombosis: No Hypertension: Yes Hypotension: No Varicose Veins: No Respiratory Problems Chronic Obstructive Pulmonary Disease (COPD): No Asthma: No Bronchitis: No Emphysema: No Pneumonia: No Pulmonary Fibrosis: No Tuberculosis: No Pulmonary Embolism: No Pulmonary Edema: No Sleep Apnea: No CPAP Dependent: No Respiratory Aspiration: No Dyspnea: No Orthopnea: No Hx Cough: No Cough: No Wheezing: No Chest Deformities: No Smoking: No Smoking Cessation Counseling: No Smoking Exposure: No Tobacco Use: No Clubbing: No Exposure to Respiratory Irritants: No Intubation: No Stomache/Intestinal Problems Liver Cancer: No Hepatitis: No Cirrhosis: No Pancreatic Cancer: No Pancreatitis: No Celiac Disease: No Gall Bladder Disease: No Gastrointestinal Bleed: No Esophageal Varices: No Moore's Esophagus: No Colitis: No Ulcerative Colitis: No Diverticulitis: No Diverticulosis: No Ulcer: No Colorectal Cancer: No Irritable Bowel: No Crohn's Disease: No Obstructive Bowel: No Hiatal Hernia: No Hemorrhoids: No Gastroesophageal Reflux Disease: Yes Polyps: No Obesity: No Genital/Urinary Problems Chronic Kidney Disease: No Renal Disease: No Kidney Stones: No Polycystic Kidney Disease: No Neurogenic Bladder: No Inguinal Hernia: No Dialysis: No Prostate Cancer: No Benign Prostatic Hyperplasia: Yes Reproductive Problems Breast Cancer: No Fibroids: No Genital Herpes: No Gonorrhea: No Syphilis: No Testicular Cancer: No Musculoskeletal Problems Muscular Dystrophy: No Myasthenia Gravis: No Marfan's Syndrome: No Bone Cancer: No Arthritis: Yes Rheumatoid Arthritis: No Osteoporosis: No Degenerative Disk Disease: No Gout: No Scoliosis: No Carpal Tunnel Syndrome: Yes (left) Fibromyalgia: No Fractures: No Degenerative Joint Disease: No Osteomyelitis: No Poliovirus: No Head,Eye,Nose,Throat Problems Cataracts: No Glaucoma: No Blind: No Retinal Detachment: No Macular Degeneration: No Chronic Ear Infections: No Deafness: No Eye Prosthesis: No Endocrine Problems Diabetes Mellitus Type 1: No Diabetes Mellitus Type 2: No Hypoglycemia: No Roland's Syndrome: No [place]'s Disease: No Hyperthyroidism: No Hypothyroidism: No Thyroid Cancer: No Parathyroid Disease: No Pituitary Disease: No Systemic Lupus Erythematosus: No Syndrome of Inappropriate Antidiuretic Hormone: No Adrenal Disease: No Graves' Disease: No Blood Problems Anemia: No Leukemia: No Hemophilia: No Thalassemia: No Sickle Cell Disease: No Clotting Problems: No Psychologic Problems Schizophrenia: No Recreational Drug Use: No Bipolar Disorder: No Depression: No Anxiety: No Behavior Problems: No Self-Mutilation: No Attention Deficit Disorder: No Attention Deficit Hyperactivity Disorder: No Depression: No Post Traumatic Stress Disorder: No Eating Disorder: No Other Problems Hospitalization: Yes Autoimmune Disease: No Down Syndrome: No Autism: No Developmental Delay: No Cosmetic Surgery: No Shingles: No Falls: No Blood Transfusions: No Blood Transfusion Reaction: No Anesthesia Reactions: No Organ Transplant: No Chemotherapy: No Radiation Therapy: No Hyperbaric Therapy: No MRSA: No VRSA: No Vancomycin-Resistant Enterococci: No Human Immunodeficiency Virus (HIV): No Chicken Pox: Yes Measles: Yes Mumps: Yes Rubella (Bhutanese Measles): No Pertussis: No Klebsiella Pneumoniae Carbapenemase Producing Bacteria: No Clostridium Difficile: No Hepatitis A: No Hepatitis B: No Hepatitis C: No Communicable Disease: No Cancer: Yes Lung Cancer: No Surgical History Angioplasty: No Appendectomy: No Bariatric Surgery: No Breast Surgery: No Cancer Surgery: No Carotid Endarterectomy: No Cholecystectomy: No Colectomy: No Colostomy: No Coronary Artery Bypass Graft: No Valve Replacement: No Herniorrhaphy: No Total Hip Replacement: No Total Knee Replacement: No Pacemaker: No Sinus Surgery: No Splenectomy: No Thyroidectomy: No Ureter Stent: No Subjective Visit Visit for: follow up visit and hip Immunization / Flu Flu Vaccine in the Last 12 Months: No Flu Vaccine Exclusion Criteria: No Exclusion Criteria History of Present Illness Chief complaint: 6 WEEK LEFT DUSTIN F/U Date of injury / onset of symptoms: 03/2024 Severo is a pleasant 74-year-old male with severe left hip pain. He is doing well s/p L DUSTIN. Personal History Occupation: RETIRED [employer] Counceling provided: No Pain Pain level (0-10): 0 Pain duration: ON AND OFF Pain location: anterior Pain quality: aching Pain timing: increases with activity Associated signs & symptoms: none Ambulatory data Ambulatory device: none Treatments Improvement with previous injections: No Number of Physical Therapy sessions: 8 Improvement with PT: Yes Improvement with NSAIDS: n/a Review of Systems Review of Systems: All systems negative unless otherwise noted in HPI.
[2025-06-14 14:19] VITALS: BP 119/78; PULSE 77; RESP 18; TEMP 36.6; O2SAT 95; BMI 26.3
--- NOTE | 2025-06-14 14:21 | XR_ITS ---
Examination:Left hip AP, lateral, AP pelvis 3 views Technique: Hip AP lateral, AP pelvis, 3 views Exam date and time: June 14, 2025 1440 hours INDICATIONS: Left hip pain months FINDINGS: Moderate osteopenia. Total left hip arthroplasty. Satisfactory alignment. No fracture. Moderate narrowing right hip joint IMPRESSION: Total left hip arthroplasty with satisfactory alignment
== END 2025-06-14 14:31 | disposition home or self-care (01) ==
PROVIDERS: PCP Family Medicine; Referring Provider Family Medicine; Supervising Provider Orthopaedic Surgery Adult Reconstructive Orthopaedic Surgery; Visit Provider Orthopaedic Surgery Adult Reconstructive Orthopaedic Surgery
DX: M16.12 Unilateral primary osteoarthritis, left hip (principal); M25.562 Pain in left knee; Z96.642 Presence of left artificial hip joint; I48.91 Unspecified atrial fibrillation; I10 Essential (primary) hypertension; K21.9 Gastro-esophageal reflux disease without esophagitis
CPT/HCPCS: 73502; 99213; G0463

== ENCOUNTER → 2025-07-21 | Outpatient (CLI) | payer MEDICARE, BC, SELFPAY ==
[2025-07-21 10:49] LABS: Glucose Estimated Average 134 mg/dL (80-131); Hemoglobin A1C 6.3 % Hgb (4.8-6.0)
[2025-07-21 10:56] LABS: Prostate Specific Antigen 0.65 ng/mL (0-4.00)
== END | disposition home or self-care (01) ==
LOC: COPL 10:16
PROVIDERS: PCP Family Medicine; Referring Provider Family Medicine; Visit Provider Family Medicine
DX: E11.65 Type 2 diabetes mellitus with hyperglycemia (principal); N42.9 Disorder of prostate, unspecified
CPT/HCPCS: 36415; 83036; 84153

== ENCOUNTER 2025-07-26 13:29 | Outpatient (AMB) | payer MEDICARE, BC, SELFPAY ==
--- NOTE | 2025-07-26 13:47 | ORTHONT_ITS ---
Vital signs 07/26/25 13:48 Height 1.65 m Height Method Measured Weight 74.106 kg Weight Measurement Method Standing Scale BMI 27.2 BP 106/70 Blood Pressure Source Automatic Cuff Blood Pressure Location Left Upper Arm Position Sitting Respiration 18 Pulse 68 Pulse Source Monitor Temp 97.9 F Temp Source Temporal Artery Scan Pulse Oximetry (%) 93 L Oxygen Delivery Method Room Air Med/Allergies Allergies & Medications Allergies Penicillins Allergy (Unknown, Verified 07/26/25 13:49) Rash Exam Exam Patient is in no acute distress and is cooperative with the examination today. Breathing is nonlabored. In no respiratory distress. Patient has no paraspinal tenderness. Spinal deformity cannot be appreciated. The gait of the patient is nonantalgic Bilateral extremities were evaluated and demonstrates sensation intact to light touch. Palpable pedal pulses are present. No significant edema is present. Bilateral knees were examined and the patient has full strength and range of motion.. The right hip was examined. Patient was able to flex to 90 degrees, adduct to 30 degrees, abduct to 40 degrees, internally rotate to 20 degrees, and externally rotate to 20 degrees. Patient has a negative logroll. Stinchfield is negative. The patient is nontender diffusely to touch. The left hip was examined. Left hip incision c/d/i. Assessment and Plan Problem List (1) Arthritis of left hip: Status: Acute Plan: Patient is a pleasant 74-year-old male with a left hip pain and left hip arthritis. He is doing well status post left total hip replacement. Will see the patient back in approximately 6 months for routine followup with new xrays Advanced Care Planning Discussion Advance care planning discussed with:: patient and spouse Office Procedures GNS Level of Care Nursing/Assessment Patient Status: Established Patient Nursing Assessment/Reassesment: Medication Reconciliation, Orthostatic Vitals, Update PMH in EMR and Vital Signs Coordination of Care: Complex Care and Chronic Disease 1-5, Education Complex Pt/Fam, Consent,records obtained, informed consent, Results/Orders obtained and Staff clarify orders Established Patient Charge Established Patient Point Assignment: 105 Established Patient Point Charge: EP Level 3 (80-115) MA Intake Visit Data Collection New Patient or Established: Established Patient (seen at [facility] within 3 years) Reason for Visit:: 6 WEEK LEFT DUSTIN F/U Seen by Clinical Staff ONLY (RN/MA): No Sales Agent Business Services Required: No PCP or OBGYN visit in last 3 months: Yes Hx Now: No Do You Feel Safe at Home: Yes Authorities Contacted: N/A Questionairres Past Medical History Past Medical History Have you ever been diagnosed with any of the following: Neurological Problems Cerebrovascular Accident (CVA): No Transient Ischemic Attacks (TIA): No Dementia: No Alzheimer's Disease: No Parkinson's Disease: No Brain Tumor: No Meningitis: No Seizures: No Epilepsy: No Multiple Sclerosis: No Cerebral Palsy: No Amyotrophic Lateral Sclerosis (ALS/Mesha Gehrig's): No Guillain-[place] Syndrome: No Spina Bifida: No Paralysis: No Peripheral Neuropathy: No Prakash's Palsy: No Subdural Hematoma: No Migraine: No Head Trauma: No Spinal Cord Injury: No Traumatic Brain Injury: No Cardiology Problems Myocardial Infarction: No Cardiac Arrhythmia: Yes Atrial Fibrillation: Yes Angina: No Heart Murmur: No Coronary Artery Disease: No Atherosclerotic Heart Disease: No Peripheral Vascular Disease: No Hypercholesterolemia: No Aneurysm: No Congestive Heart Failure: No Congenital Heart Disease: No Valvular Heart Disease: No Rheumatic Fever: No Cardiomyopathy: No Edema: No Pericarditis: No Cellulitis: No Deep Vein Thrombosis: No Hypertension: Yes Hypotension: No Varicose Veins: No Respiratory Problems Chronic Obstructive Pulmonary Disease (COPD): No Asthma: No Bronchitis: No Emphysema: No Pneumonia: No Pulmonary Fibrosis: No Tuberculosis: No Pulmonary Embolism: No Pulmonary Edema: No Sleep Apnea: No CPAP Dependent: No Respiratory Aspiration: No Dyspnea: No Orthopnea: No Hx Cough: No Cough: No Wheezing: No Chest Deformities: No Smoking: No Smoking Cessation Counseling: No Smoking Exposure: No Tobacco Use: No Clubbing: No Exposure to Respiratory Irritants: No Intubation: No Stomache/Intestinal Problems Liver Cancer: No Hepatitis: No Cirrhosis: No Pancreatic Cancer: No Pancreatitis: No Celiac Disease: No Gall Bladder Disease: No Gastrointestinal Bleed: No Esophageal Varices: No Moore's Esophagus: No Colitis: No Ulcerative Colitis: No Diverticulitis: No Diverticulosis: No Ulcer: No Colorectal Cancer: No Irritable Bowel: No Crohn's Disease: No Obstructive Bowel: No Hiatal Hernia: No Hemorrhoids: No Gastroesophageal Reflux Disease: Yes Polyps: No Obesity: No Genital/Urinary Problems Chronic Kidney Disease: No Renal Disease: No Kidney Stones: No Polycystic Kidney Disease: No Neurogenic Bladder: No Inguinal Hernia: No Dialysis: No Prostate Cancer: No Benign Prostatic Hyperplasia: Yes Reproductive Problems Breast Cancer: No Fibroids: No Genital Herpes: No Gonorrhea: No Syphilis: No Testicular Cancer: No Musculoskeletal Problems Muscular Dystrophy: No Myasthenia Gravis: No Marfan's Syndrome: No Bone Cancer: No Arthritis: Yes Rheumatoid Arthritis: No Osteoporosis: No Degenerative Disk Disease: No Gout: No Scoliosis: No Carpal Tunnel Syndrome: Yes (left) Fibromyalgia: No Fractures: No Degenerative Joint Disease: No Osteomyelitis: No Poliovirus: No Head,Eye,Nose,Throat Problems Cataracts: No Glaucoma: No Blind: No Retinal Detachment: No Macular Degeneration: No Chronic Ear Infections: No Deafness: No Eye Prosthesis: No Endocrine Problems Diabetes Mellitus Type 1: No Diabetes Mellitus Type 2: No Hypoglycemia: No Rosi's Syndrome: No [place]'s Disease: No Hyperthyroidism: No Hypothyroidism: No Thyroid Cancer: No Parathyroid Disease: No Pituitary Disease: No Systemic Lupus Erythematosus: No Syndrome of Inappropriate Antidiuretic Hormone: No Adrenal Disease: No Graves' Disease: No Blood Problems Anemia: No Leukemia: No Hemophilia: No Thalassemia: No Sickle Cell Disease: No Clotting Problems: No Psychologic Problems Schizophrenia: No Recreational Drug Use: No Bipolar Disorder: No Depression: No Anxiety: No Behavior Problems: No Self-Mutilation: No Attention Deficit Disorder: No Attention Deficit Hyperactivity Disorder: No Depression: No Post Traumatic Stress Disorder: No Eating Disorder: No Other Problems Hospitalization: Yes Autoimmune Disease: No Down Syndrome: No Autism: No Developmental Delay: No Cosmetic Surgery: No Shingles: No Falls: No Blood Transfusions: No Blood Transfusion Reaction: No Anesthesia Reactions: No Organ Transplant: No Chemotherapy: No Radiation Therapy: No Hyperbaric Therapy: No MRSA: No VRSA: No Vancomycin-Resistant Enterococci: No Human Immunodeficiency Virus (HIV): No Chicken Pox: Yes Measles: Yes Mumps: Yes Rubella (Polish Measles): No Pertussis: No Klebsiella Pneumoniae Carbapenemase Producing Bacteria: No Clostridium Difficile: No Hepatitis A: No Hepatitis B: No Hepatitis C: No Communicable Disease: No Cancer: Yes Lung Cancer: No Surgical History Angioplasty: No Appendectomy: No Bariatric Surgery: No Breast Surgery: No Cancer Surgery: No Carotid Endarterectomy: No Cholecystectomy: No Colectomy: No Colostomy: No Coronary Artery Bypass Graft: No Valve Replacement: No Herniorrhaphy: No Total Hip Replacement: No Total Knee Replacement: No Pacemaker: No Sinus Surgery: No Splenectomy: No Thyroidectomy: No Ureter Stent: No Subjective Visit Visit for: follow up visit and hip Immunization / Flu Flu Vaccine in the Last 12 Months: No Flu Vaccine Exclusion Criteria: No Exclusion Criteria History of Present Illness Chief complaint: 6 WEEK LEFT DUSTIN F/U Date of injury / onset of symptoms: 03/2024 Severo is a pleasant 74-year-old male with severe left hip pain. He is doing well s/p L DUSTIN. Personal History Occupation: RETIRED BMI Counceling provided: No Pain Pain level (0-10): 0 Pain duration: ON AND OFF Pain location: anterior Pain quality: aching Pain timing: increases with activity Associated signs & symptoms: none Ambulatory data Ambulatory device: none Treatments Improvement with previous injections: No Number of Physical Therapy sessions: 8 Improvement with PT: Yes Improvement with NSAIDS: n/a Review of Systems Review of Systems: All systems negative unless otherwise noted in HPI.
[2025-07-26 13:48] VITALS: BP 106/70; PULSE 68; RESP 18; TEMP 36.6; O2SAT 93; BMI 27.2
== END 2025-07-26 13:59 | disposition home or self-care (01) ==
LOC: HODSRG 13:29
PROVIDERS: PCP Family Medicine; Referring Provider Family Medicine; Supervising Provider Orthopaedic Surgery Adult Reconstructive Orthopaedic Surgery; Visit Provider Orthopaedic Surgery Adult Reconstructive Orthopaedic Surgery
DX: M16.12 Unilateral primary osteoarthritis, left hip (principal); M25.552 Pain in left hip; Z96.642 Presence of left artificial hip joint; I10 Essential (primary) hypertension; I48.91 Unspecified atrial fibrillation; K21.9 Gastro-esophageal reflux disease without esophagitis
CPT/HCPCS: 99213; G0463

== ENCOUNTER → 2025-10-25 | Outpatient (CLI) | payer MEDICARE, BC, SELFPAY ==
--- NOTE | 2025-10-25 | XR_ITS ---
Examination: Shoulder, left, 3 views Technique: Shoulder AP internal rotation, AP external rotation, Y view shoulder, 3 views Exam date and time : October 25, 2025, 1234 hours INDICATIONS: Left shoulder replacement done 11 years ago, decreased range of motion and shoulder pain 2 years FINDINGS: Left shoulder arthroplasty The prosthetic humeral head appears displaced cephalad relative to the articulating prosthetic surface at the level of the scapula, clinical correlation advised No fracture IMPRESSION: The prosthetic humeral head appears displaced cephalad relative to the articulating prosthetic articular surface, clinical correlation advised
== END | disposition home or self-care (01) ==
PROVIDERS: PCP Family Medicine; Referring Provider Family Medicine; Visit Provider Family Medicine
DX: S43.005A Unspecified dislocation of left shoulder joint, initial encounter (principal); X58.XXXA Exposure to other specified factors, initial encounter
CPT/HCPCS: 73030

== ENCOUNTER → 2025-11-01 | Outpatient (CLI) | payer MEDICARE, BC, SELFPAY ==
[2025-11-01 11:25] LABS: Glucose Estimated Average 131 mg/dL (80-131); Hemoglobin A1C 6.2 % Hgb (4.8-6.0)
[2025-11-01 12:08] LABS: Alanine Aminotransferase 52 U/L (10-49); Albumin, Serum 4.6 gm/dL (3.4-4.8); Alkaline Phosphatase 62 U/L (46-116); Anion Gap 9 (7-16); Aspartate Amino Transferase 33 U/L (0-34); BUN/Creatinine Ratio 12 Ratio (12-20); Bilirubin,Total 0.7 mg/dL (0.3-1.2); Blood Urea Nitrogen 14 mg/dL (9-23); Calcium 9.1 mg/dL (8.3-10.6); Calcium (Corrected) 9.1 mg/dL (8.5-10.1); Carbon Dioxide 29.4 mMol/L (20.0-31.0); Chloride 101 mMol/L (98-107); Creatinine (Component) 1.2 mg/dL (0.6-1.3); Free T4 (Free Thyroxine) 1.49 ng/dL (0.89-1.76); Glucose 126 mg/dL (74-106); Osmolality,Calculated 280 (275-295); Potassium 4.4 mMol/L (3.4-5.1); Sodium 139 mMol/L (136-145); Thyroid Stimulating Hormone 4.63 uIU/mL (0.55-4.78); eGFR > 60 See Note
[2025-11-01 13:55] LABS: Albumin/Globulin Ratio 1.6 (1.2-2.2); Cardiac Risk Estimate 3.6 RATIO (4.0-6.7); Cholesterol 141 mg/dL (132-200); Globulin 2.9 gm/dL (2.3-3.5); HDL Cholesterol 39 mg/dL (40-60); LDL Cholesterol,Calculated 68 mg/dL (0-130); Total Protein 7.5 gm/dL (5.7-8.2); Triglycerides 169 mg/dL (30-150)
== END | disposition home or self-care (01) ==
LOC: COPL 10:06
PROVIDERS: PCP Family Medicine; Referring Provider Family Medicine; Visit Provider Family Medicine
DX: E11.65 Type 2 diabetes mellitus with hyperglycemia (principal); E78.1 Pure hyperglyceridemia; E03.2 Hypothyroidism due to medicaments and other exogenous substances
CPT/HCPCS: 36415; 80053; 80061; 83036; 84439; 84443